=== PATIENT | male | born 1985 | race Caucasian/White ===

== ENCOUNTER 2016-08-11 14:37 | Emergency (ER) | payer OTHER ==
[~2016-08-11] VITALS: Ht 172.7 cm; Wt 65.5 kg
[2016-08-11 14:44] VITALS: TEMP 36.3; Ht 172.7 cm; Wt 65.5 kg
[2016-08-11] MEDS ORDERED: HYDR-5688 PO (15:29)
[2016-08-11] MEDS ORDERED: CYCL10TA6 PO (15:29)
[2016-08-11 15:42] VITALS: BP 141/88; PULSE 78; O2SAT 99
--- NOTE | 2016-08-11 15:44 | EMERGENCY ROOM VISIT NOTE ---
ED Visit Note First contact with patient: 15:05 Chief Complaint: Lower back pain. History of Present Illness: Mr. Wray is a 31-year-old white male who ambulates into the ED complaining of lumbar back pain. Historically patient reports he fell through a roof at the age of 17 and has had intermittent back pain for the last 15 years. He does report he has been seen in other emergency departments and x-rays were performed and were negative. He has not followed up with a primary care provider or back specialist for his back pain. Patient reports approximately 2 hours ago he was sitting on a couch and twisted his lower back and developed an acute onset of severe pain. Since that time his pain has been constant. He describes it as a sharp sensation and places it over the L5 to S1 area with left sided prominence. He rates his discomfort 8/ 10. He reports there is some radiation into the buttocks and on other occasions he reports it goes down his entire left leg and makes left leg go numb but that is not currently happening. His pain worsens with palpations in all movement of the lumbar spine. He has not identified any alleviating factors related to the pain. He has not taken any medications for pain prior to arrival at the hospital. He denies any recent repetitive or direct trauma. He denies any associated symptoms including fevers, chills, sweats, abdominal pain, nausea, vomiting, diarrhea, constipation, rectal bleeding, black/tarry stools, flank pain, urinary symptoms, hematuria, bowel and bladder dysfunction, genital paresthesias, lower extremity weakness, previous cancers, recent weight loss, IV drug use. Review of Systems: As noted above in history of present illness. 8 body systems were reviewed and found to be negative as noted above. Past Medical History: As previously noted Current Medications: Patient denies. Allergies to Medications: Tramadol. Social History: Patient is not employed; he feels safe in his home environment; he denies tobacco and alcohol use. Physical Examination: Vital Signs: Date Time Temp Pulse Resp B/P Pulse Ox O2 Delivery O2 Flow Rate FiO2 08/11/16 14:44 36.3 87 17 129/91 99 Room Air GENERAL: 31-year-old male in mild distress due to pain, nontoxic-appearing, afebrile and hemodynamically stable. NEUROLOGICAL: Awake, alert and oriented to person, place and time. Answering questions appropriately and following commands. Normal gait. Good hand eye coordination. No focal motor or sensory deficits. SKIN: Warm, dry and pink. No soft tissue eruptions or trauma noted. HEENT: Atraumatic and normocephalic. BACK: No tenderness over the bony cervical and thoracic spine. No CVA tenderness. Mild to moderate tenderness over the L4 to S1 area and in the left sided paraspinous muscles with obvious spasm. Decreased range of motion in all movements due to pain. Negative straight leg raise test. ABDOMEN: Flat, soft and nontender. Positive bowel sounds in all quadrants. No guarding, rigidity or organomegaly. LOWER EXTREMITIES: Moves extremities well on command and with purpose. 5/5 muscle strength in flexion, extension, abduction and abduction of the hip, flexion and extension of the knees, plantar flexion and dorsiflexion of the ankles and flexion and extension of the great toes. Decreased sensation to light touch on the right lower extremity due to previous surgery. Distal pulses are intact and capillary refill is brisk. No calf tenderness or cords. ED Course: Patient is assessed as noted above. Patient was educated about today's findings and instructed on his treatment plan ; he verbalized understanding and agreement with this plan. Clinical Impression: Acute on chronic lower back pain. Disposition: Patient discharged home in stable condition accompanied by his mother; prior to departure he was reassessed and subjectively reported he was feeling the same. Plan: Comfort measures including appropriate lifting and moving techniques, ice, muscle relaxants; Flexeril, and a sliding pain scale of ibuprofen, acetaminophen and [place] were discussed with the patient. Appropriate narcotic precautions were discussed with the patient. Patient was encouraged to follow-up with his insurance company for possible assistance in finding a primary care provider or back specialist in his community. Patient was encouraged return the ED for worsening/uncontrolled pain, fevers, abdominal plain, bloody stools, genital paresthesias, bowel and bladder dysfunction, lower extremity weakness or any new/concerning symptoms.
== END 2016-08-11 15:43 | disposition home or self-care (01) ==
LOC: C.EDB 14:41 → C.EDD 15:43
DX: M54.5 Low back pain (principal); G89.29 Other chronic pain; X50.0XXA Overexertion from strenuous movement or load, initial encounter